=== PATIENT | male | born 1980 | race Caucasian/White ===

== ENCOUNTER 2021-06-08 20:00 | Emergency (ER) | payer BC ==
[2021-06-08 20:45] VITALS: BP 152/81; PULSE 95; RESP 19; TEMP 98.8
--- NOTE | 2021-06-08 22:17 | US ---
EXAMINATION TYPE: US scrotum with doppler. Grayscale and color Doppler Duplex imaging performed of ivan cotto scrotum. DATE OF EXAM: 06/08/2021 COMPARISON: NONE CLINICAL HISTORY: testicle pain. EC patient with severe testicular pain today; patient denies trauma EXAM MEASUREMENTS: TESTICLES: Right Testicle: 4.6 x 3.7 x 3.1 cm Left Testicle: 4.5 x 3.8 x 3.1 cm EPIDIDYMIS HEAD: Right Epididymis: 0.6 x 0.7 cm Left Epididymis: 0.6 x 0.9 cm Doppler was performed to assess for testicular vascularity; good bilateral color flow and waveforms a re seen. There is no evidence of testicular torsion. Presence of hydroceles: In right scrotal sac hydrocele = 5.4 x 3.6 x 1.4cm; in left scrotal sac hyd rocele =3.6 x 3.0 x 1.4cm Presence of varicoceles: no. Right epididymal head cyst is noted = 0.5 x 0.5 x 0.4cm. Right testicular appendix is noted on image #[id number] = 0.3 x 0.4 x 0.5cm. Hypervascular right testicle is noted. Thickened left epididymis is noted throughout = 2.1cm A/P. Hypervascular left testicle is also noted suggesting bilateral testicular inflammation. IMPRESSION: There is no evidence of testicular torsion. Bilateral hydroceles. No evidence of testicular mass. The re is small right epididymal cyst.
[2021-06-08] MEDS ORDERED: AZITHROMYCIN 500 MG TAB PO STA (22:24)
[2021-06-08] MEDS ORDERED: IBUPROFEN 800 MG TAB PO STA (22:24)
[2021-06-08] MEDS ORDERED: IBUPROFEN 600 MG STARTER PACK 4 TAB BTL PO STA (22:24)
[2021-06-08] MEDS ORDERED: ACET/COD 300 MG/30 MG STARTER PACK 6 TAB BTL PO STA (22:24)
[2021-06-08] MEDS ORDERED: MORPHINE SULFATE 4 MG/ML SYRINGE IM STA (22:24)
[2021-06-08] MEDS ORDERED: CIPROFLOXACIN HCL 500 MG TAB PO STA (22:24)
[2021-06-08] MEDS ORDERED: LEVOFLOXACIN 750 MG TAB PO STA (22:26)
[2021-06-08 22:36] LABS: Appearance,Urine Clear (Clear); Bilirubin,Urine Negative (Negative); Blood,Urine Negative (Negative); Color,Urine Yellow; Glucose,Urine (UA) Negative (Negative); Ketones,Urine Negative (Negative); Leukocyte Esterase,Urine Negative (Negative); Nitrite,Urine Negative (Negative); PH, Urine 6.5 (5.0-8.0); Protein,Urine Negative (Negative); Specific Gravity,Urine 1.024 (1.001-1.035); Urobilinogen,Urine <2.0 mg/dL (<2.0)
--- NOTE | 2021-06-08 23:16 | ED ---
Male Urogenital HPI - General Chief complaint: Urogenital Stated complaint: Testicle Pain Time Seen by Provider: 06/08/21 21:37 Source: patient, RN notes reviewed, old records reviewed Mode of arrival: wheelchair Limitations: no limitations - History of Present Illness Initial comments: This is a 40-year-old male to the emergency department today. Patient presents today for evaluation regards to severe testicular pain. Patient unable to sit still unable to lay down denying dysuria or abdominal pain. Symptoms for 2 days of progressively worsening MD Complaint: testicle pain, testicle swelling -: days(s) Location: penis, right testicle, left testicle Radiation: none Severity: severe Severity scale (1-10): 9 Consistency: constant Improves with: none Worsens with: none Reports: swelling - Related Data Previous Rx's Medication Instructions Recorded Ciprofloxacin HCl [Cipro] 500 mg PO Q12HR #20 tablet 06/08/21 Allergies Allergy/AdvReac Type Severity Reaction Status Date / Time cephalexin [From Keflex] AdvReac Nausea & Verified 06/08/21 20:44 Vomiting & Diarrhea sulfamethoxazole AdvReac Nausea & Verified 06/08/21 20:44 [From Bactrim] Vomiting & Diarrhea trimethoprim [From Bactrim] AdvReac Nausea & Verified 06/08/21 20:44 Vomiting & Diarrhea Review of Systems ROS Statement: Those systems with pertinent positive or pertinent negative responses have been documented in the HPI. ROS Other: All systems not noted in ROS Statement are negative. Past Medical History Past Medical History: No Reported History Past Surgical History: Orthopedic Surgery Smoking Status: Never smoker Past Alcohol Use History: None Reported Past Drug Use History: None Reported General Exam General appearance: alert, in no apparent distress Head exam: Present: atraumatic, normocephalic, normal inspection Eye exam: Present: normal appearance, PERRL, EOMI. Absent: scleral icterus, conjunctival injection, periorbital swelling ENT exam: Present: normal exam, mucous membranes moist Neck exam: Present: normal inspection. Absent: tenderness, meningismus, lymphadenopathy Respiratory exam: Present: normal lung sounds bilaterally. Absent: respiratory distress, wheezes, rales, rhonchi, stridor Cardiovascular Exam: Present: regular rate, normal rhythm, normal heart sounds. Absent: systolic murmur, diastolic murmur, rubs, gallop, clicks GI/Abdominal exam: Present: soft, normal bowel sounds. Absent: distended, tenderness, guarding, rebound, rigid Extremities exam: Present: normal inspection, full ROM, normal capillary refill. Absent: tenderness, pedal edema, joint swelling, calf tenderness Back exam: Present: normal inspection Neurological exam: Present: alert, oriented X3, CN II-XII intact Psychiatric exam: Present: normal affect, normal mood Skin exam: Present: warm, dry, intact, normal color. Absent: rash Course Vital Signs 06/08/21 20:41 Temperature 98.8 F Pulse Rate 95 Respiratory 19 Rate Blood Pressure 152/81 O2 Sat by Pulse 97 Oximetry - Reevaluation(s) Reevaluation #1: Medical record is reviewed Patient symptoms are significantly improved here in the ER Patient informed of results and questions are answered Patient is in no acute distress Medical Decision Making - Medical Decision Making 40 male to the emergency department today. He was presented today for evaluation regards to significant scrotal pain. Ultrasound is negative urinalysis is negative. Patient will treat for possible orchitis and follow-up with primary care - Lab Data Lab Results 06/08/21 Range/Units 22:25 Urine Color Yellow Urine Appearance Clear (Clear) Urine pH 6.5 (5.0-8.0) Ur Specific [employer] 1.024 (1.001-1.035) Urine Protein Negative (Negative) Urine Glucose (UA) Negative (Negative) Urine Ketones Negative (Negative) Urine Blood Negative (Negative) Urine Nitrite Negative (Negative) Urine Bilirubin Negative (Negative) Urine Urobilinogen <2.0 (<2.0) mg/dL Ur Leukocyte Esterase Negative (Negative) - Radiology Data Radiology results: report reviewed (Ultrasound negative for acute disease), image reviewed Disposition Clinical Impression: Testicular pain, Orchitis and epididymitis Disposition: HOME SELF-CARE Condition: Good Instructions (If sedation given, give patient instructions): Epididymo-Orchitis (ED), Urinary Tract Infection in Men (ED), Testicle Pain (ED) Prescriptions: Ciprofloxacin HCl [Cipro] 500 mg PO Q12HR #20 tablet Is patient prescribed a controlled substance at d/c from ED?: No Referrals: None,Stated [Primary Care Provider] - 1-2 days
[2021-06-08] MEDS: AZITHROMYCIN 500 MG TAB PO STA ×2 (23:33→23:54)
== END 2021-06-09 | disposition home or self-care (01) ==
LOC: EC 20:00
DX: N45.3 Epididymo-orchitis (principal); Z88.1 Allergy status to other antibiotic agents; Z88.2 Allergy status to sulfonamides
CPT/HCPCS: 76870; 81003; 93975; 99284